=== PATIENT | male | born 1970 | race African-American/Black ===

== ENCOUNTER 2019-07-26 17:09 | Observation (INO) ==
[2019-07-26] MEDS ORDERED: ASPIRIN PO ONE ×2 (17:34→21:45)
[2019-07-26 17:46] LABS: BASO# 0.02 X1000 (0.0-0.2); BASO% 0.3 % (0.0-0.8); EOS# 0.07 X1000 (0.0-0.7); HEMATOCRIT 41.3 % (42.0-52.0); HEMOGLOBIN 13.8 g/dL (14.0-18.0); IMM GRAN# 0.01 X1000 (0.0-0.04); IMM GRAN% 0.1 % (0.0-0.5); LYMPH% 25.6 % (20.5-51.1); MCH 29.4 PG (27-31); MCHC 33.4 g/dL (33-37); MCV 88.1 FL (81-99); MONO# 0.88 X1000 (0.11-0.59); MONO% 12.5 % (1.7-9.3); MPV 11.2 FL (7.4-10.4); NEUT# 4.24 X1000 (1.4-6.5); NEUT% 60.5 % (42.2-75.2); PLT 215 X1000 (130-400); RBC 4.69 XMIL (4.7-6.1); WBC 7.02 X1000 (4.8-10.8)
--- NOTE | 2019-07-26 17:55 | PROVIDER DOCUMENTATION ---
HPI-Chest Pain - General Chief Complaint: Cough Stated Complaint: CP X 4 DAYS Time Seen by Provider: 07/26/19 17:36 Source: patient Allergies/Adverse Reactions: Patient Allergies Allergy/AdvReac Type Severity Reaction Status Date / Time No Known Allergies Allergy Verified 03/19/17 16:12 Home Medications: Home Medication List Medication Instructions Recorded Confirmed Last Taken Type Cyclobenzaprine [Flexeril] 10 mg PO TID #20 tablet 03/19/17 Unknown Rx Ibuprofen [Motrin] 800 mg PO Q8H PRN PRN #20 tablet 03/19/17 Unknown Rx Methylprednisolone [Medrol Dosepak] 4 mg PO DIRECTED #1 package 03/19/17 Unknown Rx Omeprazole 20 mg PO DAILY #20 tablet. 03/19/17 Unknown Rx - History of Present Illness-CP Nature of Presenting Problem: 48 yom presents with 4 days of sharp intermittent CP that is non radiating & cough and SOB. He denies sweating, N/V/D, dizziness or any other symptoms Location: reports: substernal Chest Pain Radiation: reports: no radiation Quality of Pain: reports: sharp Severity in ED: moderate Onset/Duration: 4 days ago Timing: intermittent Context/Activities at Onset: reports: none Modifying Factors: improves with: nothing Associated Symptoms: reports: denies symptoms Nitro Today/Relief: no nitro taken today Aspirin Treatment Today: 325 mg x 1, provided by ED Prior Chest Pain/Cardiac Workup: reports: no prior chest pain, no prior cardiac workup Similar Symptoms Previously?: No Recently Seen Here or By Another Healthcare Provider: No Review of Systems - Adult - REVIEW OF SYSTEMS - ADULT Constitutional: reports: no symptoms reported. denies: see HPI, chills, fever, fatique, night sweats, weight gain, weight loss, other Eyes: reports: no symptoms reported. denies: see HPI, discharge, dry eyes, decreased vision, blurred vision, double vision, eye pain, redness, other Ears, Nose, Mouth & Throat: reports: no symptoms reported. denies: see HPI, ear discharge, ear pain, hearing loss, tinnitus, epistaxis, sinus problem, nose pain, loose teeth, mouth/dental pain, mouth swelling, hoarseness, throat pain, throat swelling, other Cardiovascular: reports: chest pain. denies: no symptoms reported, see HPI, edema, heart murmur, irregular heart rate, orthopnea, palpitations, poor circulation, PND, syncope, other Respiratory: reports: cough, shortness of breath. denies: no symptoms reported, see HPI, chronic cough, dyspnea on exertion, excessive sputum production, hemopt ysis, pleurisy, wheezing, other Gastrointestinal: reports: no symptoms reported. denies: see HPI, abdominal pain, hematemesis, constipation, diarrhea, difficulty swallowing, frequent heartburn, nausea, poor appetite, rectal bleeding, vomiting, other Genitourinary: reports: no symptoms reported. denies: see HPI, dysuria, discharge, frequency, flank pain, frequent UTI's, hematuria, hesitency, incontinence, urinary retention, urgency, other Musculoskeletal: reports: no symptoms reported. denies: see HPI, bone pain, back pain, frequent leg cramps, joint pain, joint swelling, muscle aches, muscle weakness, neck pain, other Integumentary: reports: no symptoms reported. denies: see HPI, hives, hair loss, itching, mole changes, nail changes, rash, skin sores/ulcer, skin thickening, other Neurological: reports: no symptoms reported. denies: see HPI, ataxia, dizziness /vertigo, headache/migraines, loss of balance, numbness, paresthesia, seizure, slurred speech, syncope, tremors, other Psychiatric: reports: no symptoms reported. denies: see HPI, anxiety, anti- depressant use, alcohol/drug dependence, depression, emotional problems, insomni a, panic attacks, suicidal thoughts, other Endocrine: reports: no symptoms reported. denies: see HPI, change in skin pigment, excessive sweating, goiter, cold intolerance, heat intolerance, increased hunger, increased thirst, polyuria, other Hematologic/Lymphatic: reports: no symptoms reported. denies: see HPI, blood clots, easy bruising, low blood count, lymphedema, prolonged bleeding, swollen lymph nodes, transfusions, other Allergic/Immunologic: reports: no symptoms reported. denies: see HPI, allergic reactions, allergic rhinitis, asthma, eczema, food allergy, frequent infections, hay fever, hives, positive PPD, urticaria, other Past History - Adult - PAST MEDICAL HISTORY-ADULT Review of Records: reports: Nursing Assessment Review, Social history reviewed & non-contributory. Major Childhood Illnesses: reports: denies history Cardiovascular: reports: denies history Respiratory: reports: denies history Gastrointestinal: reports: denies history Obstetrical/Gynecological: reports: denies history Genitourinary: reports: denies history Musculoskeletal: reports: orthopedic injury Neurological: reports: denies history Endocrine/Immune: reports: denies history Other Conditions: reports: denies history - PRIOR SURGERIES/PROCEDURES Surgical/Procedure History: reports: orthopedic (extremity) - IMMUNIZATION STATUS Childhood Immunizations: See Nurse Assessment Flu Vaccine: See Nurse Assessment Physical Exam-General - PHYSICAL EXAM-ADULT Initial Vital Signs Reviewed: Yes - CONSTITUTIONAL General Appearance: appears well, alert - EYES Eyes: PERRL/EOMI, pink conjunctivae - HEAD, EARS, NOSE, MOUTH & THROAT HENMT: normocephalic/atraumatic, moist mucous membranes, normal ENT inspection - NECK Neck: non-tender, full range of motion, supple - RESPIRATORY Respiratory: chest non-tender, lungs clear, normal breath sounds, no pleuratic chest pain, no respiratory distress, no accessory muscle use - CARDIOVASCULAR Cardiovascular: normal peripheral pulses, regular rate, rhythm, no edema, no gallop, no JVD, no murmur - GASTROINTESTINAL (ABDOMEN) Abdominal Exam: normal bowel sounds, non tender, soft, no organomegaly, no pulsatile mass - LYMPHATIC Lymphatic: no adenopathy - MUSCULOSKELETAL Back Exam: normal inspection, no CVA tenderness, no vertebral tenderness Extremity: normal range of motion, non-tender, normal gait, normal inspection Peripheral Pulses: radial (R): 2+, radial (L): 2+ - SKIN Integumentary: normal color, normal turgor, warm/dry - NEUROLOGIC Neurologic: grossly normal - PSYCHIATRIC Psych/Mental Status: normal mood/affect, oriented x 3 - HEART Score HEART Score: History: Moderately Suspicious HEART Score: ECG: Non-Specific Repolarization Disturbance/LBBB/PM HEART Score: Age: 45-65 Years HEART Score: Risk Factors for Atherosclerotic Disease: 1 or 2 Risk Factors HEART Score: Troponin: < or = Normal Limit Total HEART Score:: 4 Progress - PLAN OF CARE/RESULTS Progress/Plan/Lab Results: Vital Signs - 8 hr 07/26/19 17:12 07/26/19 18:49 Temperature 97.9 F 98 F Pulse Rate 82 60 Respiratory Rate 18 18 Blood Pressure 159/102 147/103 O2 Sat by Pulse Oximetry 99 95 Laboratory Results - last 24 hr 07/26/19 07/26/19 07/26/19 17:25 17:25 17:25 WBC 7.02 RBC 4.69 L Hgb 13.8 L Hct 41.3 L MCV 88.1 MCH 29.4 MCHC 33.4 RDW Std Deviation 13.0 Plt Count 215 MPV 11.2 H Immature Gran % (Auto) 0.1 Neut % (Auto) 60.5 Lymph % (Auto) 25.6 [place] % (Auto) 12.5 H Eos % (Auto) 1.0 Baso % (Auto) 0.3 Immature Gran # (Auto) 0.01 Neut # (Auto) 4.24 Lymph # (Auto) 1.80 [place] # (Auto) 0.88 H Eos # (Auto) 0.07 Baso # (Auto) 0.02 PT INR PTT (Actin FS) D-Dimer, Quantitative Sodium 141 Potassium 4.1 Chloride 102 Carbon Dioxide 28 Anion Gap 11 BUN 11 Creatinine 1.0 Estimated GFR/1.73 m2 > 60 BUN/Creatinine Ratio 11 Glucose 85 Calculated Osmolality 280 Calcium 9.7 Total Bilirubin 0.50 AST 20 ALT 15 Alkaline Phosphatase 67 Creatine Kinase 292 H Creatine Kinase Index 1.2 CK-MB (CK-2) 3.57 Troponin T < 0.010 Xyf-B-Nzrafhkmtbu Pept Total Protein 7.8 Albumin 4.7 Globulin 3.0 Albumin/Globulin Ratio 2.0 07/26/19 07/26/19 07/26/19 17:25 17:25 17:25 WBC RBC Hgb Hct MCV MCH MCHC RDW Std Deviation Plt Count MPV Immature Gran % (Auto) Neut % (Auto) Lymph % (Auto) [place] % (Auto) Eos % (Auto) Baso % (Auto) Immature Gran # (Auto) Neut # (Auto) Lymph # (Auto) [place] # (Auto) Eos # (Auto) Baso # (Auto) PT 12.1 INR 0.86 PTT (Actin FS) 26.9 D-Dimer, Quantitative 0.74 H Sodium Potassium Chloride Carbon Dioxide Anion Gap BUN Creatinine Estimated GFR/1.73 m2 BUN/Creatinine Ratio Glucose Calculated Osmolality Calcium Total Bilirubin AST ALT Alkaline Phosphatase Creatine Kinase Creatine Kinase Index CK-MB (CK-2) Troponin T Cnj-Y-Jzlyztqpgnl Pept 70 Total Protein Albumin Globulin Albumin/Globulin Ratio 07/26/19 07/26/19 18:45 18:45 WBC RBC Hgb Hct MCV MCH MCHC RDW Std Deviation Plt Count MPV Immature Gran % (Auto) Neut % (Auto) Lymph % (Auto) [place] % (Auto) Eos % (Auto) Baso % (Auto) Immature Gran # (Auto) Neut # (Auto) Lymph # (Auto) [place] # (Auto) Eos # (Auto) Baso # (Auto) PT INR PTT (Actin FS) D-Dimer, Quantitative Sodium Potassium Chloride Carbon Dioxide Anion Gap BUN Creatinine Estimated GFR/1.73 m2 BUN/Creatinine Ratio Glucose Calculated Osmolality Calcium Total Bilirubin AST ALT Alkaline Phosphatase Creatine Kinase 255 H Creatine Kinase Index 1.2 CK-MB (CK-2) 3.15 Troponin T < 0.010 Ehc-N-Fqkeypjkrgs Pept Total Protein Albumin Globulin Albumin/Globulin Ratio Orders Category Date Time Status Cardiac Monitoring DIRECTED Care 07/26/19 17:34 Active Oxygen Therapy- ED Nursing DIRECTED Care 07/26/19 17:34 Active Saline Loc NOW Care 07/26/19 17:34 Active CHEST-2 VIEWS [RAD] Stat Exams 07/26/19 17:17 Completed CTA [CT ANGIOGRM PULMONARY ARTERIES] [CT] Stat Exams 07/26/19 18:24 Completed CBC WITH ELECTRONIC DIFF [HEME] Stat Lab 07/26/19 17:25 Completed CK PROFILE [SP CHEM] Stat Lab 07/26/19 17:25 Completed CK PROFILE [SP CHEM] Stat Lab 07/26/19 18:45 Completed COMPREHENSIVE METABOLIC PANEL [CHEM] Stat Lab 07/26/19 17:25 Completed D-DIMER [COAG] Stat Lab 07/26/19 17:25 Completed PRO B-NATRIURETIC PEPTIDE Stat Lab 07/26/19 17:25 Completed PROTIME WITH INR [COAG] Stat Lab 07/26/19 17:25 Completed PTT [COAG] Stat Lab 07/26/19 17:25 Completed TROPONIN T Stat Lab 07/26/19 17:25 Completed TROPONIN T Stat Lab 07/26/19 18:45 Completed Aspirin Med 07/26/19 17:34 Discontinued 325 mg PO NOW ONE CP/SOB/Palp >45 yrs of Age Stat Oth 07/26/19 17:34 Ordered EKG [EKG] Stat Ther 07/26/19 17:34 Draft EKG [EKG] Stat Ther 07/26/19 18:40 Draft Result Diagrams: 07/26/19 17:25 07/26/19 17:25 - EKG 1 Time of EKG reading by physician:: 17:21 EKG Read and Signed by:: Mike Rae EKG Interpretation (*Must complete 3 of following elements*): Normal Rate: 72 Rhythm: NSR [place]: normal QRS: normal CT Interval: normal ST Wave: normal Prior EKG Comparison: no prior EKG 2 Time of EKG reading by physician:: 18:46 EKG Read and Signed by:: Mike Rae EKG Interpretation (*Must complete 3 of following elements*): Abnormal Rate: 63 Rhythm: NSR WITH EARLY REPOLARIZATION AND J POINT ELEVATION [place]: normal QRS: normal CT Interval: normal ST Wave: normal Prior EKG Comparison: changes noted - XRAY 1 XRAY Study: Chest Impression: See EMR Report (EXAM: CHEST-2 VIEWS 07/26/2019 HISTORY: prod cough x 4 days TECHNIQUE: PA and lateral chest COMMENT: The heart size is at the upper limits of normal. The lungs are clear. There are no previous studies. IMPRESSION: No evidence of acute disease. Electronically signed by Vincent Ho 07/26/2019 7:07 PM 07/26/191906 Interpreting Physician: Vincent Ho MD Dictated Date/Time: 07/26/191906 cc: Mike Rae MD; Ras Barrios MD) - CT/MRI 1 CT Study: Angiogram Impression: See EMR Report (EXAM: CT ANGIOGRM PULMONARY ARTERIES 07/26/2019 HISTORY: Elevated DD, CP, Cough TECHNIQUE: This exam was performed using automated exposure control, adjustment of mA or kV according to patient size, and/or use of iterative reconstruction technique. COMMENT: There are no filling defects in the pulmonary arteries. The thoracic aorta is not distended. There is no evidence of dissection. No abnormal fluid collections are present. The lungs are clear. The regional skeleton is intact. There is no evidence of acute abnormality in the visualized portion of the abdomen. IMPRESSION: No evidence of acute disease. Electronically signed by Vincent Ho 07/26/2019 7:23 PM 07/26/[id number] Interpreting Physician: Vincent Ho MD Dic tated Date/Time: 07/26/191919 cc: Rosaura Haq; Ras Barrios MD) - CONSULTS/PCP/HOSPITALIST Notification #1 *Consult/PCP/Hospitalist*: DR. DREW Time Discussed: 19:58 Consult Disposition: Admit Departure - Departure Date of Disposition Decision: 07/26/19 Time of Disposition Decision: 19:58 DIAGNOSIS: Chest pain Qualifiers: Chest pain type: unspecified Qualified Code(s): R07.9 - Chest pain, unspecified Disposition: ADMITTED INPATIENT 09 Certified Medical Emergency: Emergent Condition: Stable Referrals and Follow-Ups: None,PCP [NON-STAFF PROVIDER] - - Critical Care Note This patient required my direct & personal management of CC.: No Attestation - Physician/ LUCY Attestation Patient care was provided by Advanced Practice Provider:: Yes Advanced Practice Provider:: Rosaura Haq Advanced Practice Provider documentation review:: The Mid-level provider documentation, treatment plan and medical decision making was reviewed by the physician who agrees with all treatment and medical decision making by the MLP. The physician spent face to face time with patient:: No Advanced Practice Provider documentation review:: Supervising physician onsite and consulted in the evaluation and care of this patient. The physician did not have a face to face encounter with the patient.
[2019-07-26 17:58] LABS: INR 0.86; PROTIME 12.1 Seconds (11.0-16.0)
[2019-07-26 17:59] LABS: PTT 26.9 Seconds (22.3-41.8)
--- NOTE | 2019-07-26 18:00 | ED EKG INTERP ---
This chart was entered by Natacha Godinez Scribe, acting as scribe for Rosaura Haq CRNP. EKG Interpretation - EKG Time of EKG reading by physician:: 17:21 EKG Read and Signed by:: Mike Rae EKG Interpretation (*Must complete 3 of following elements*): Normal Rate: 72 Rhythm: NSR [place]: normal QRS: normal [place] Interval: normal ST Wave: normal Attestation - Physician/ LUCY Attestation Patient care was provided by Advanced Practice Provider:: Yes Advanced Practice Provider:: Rosaura Haq Advanced Practice Provider documentation review:: The Mid-level provider documentation, treatment plan and medical decision making was reviewed by the physician who agrees with all treatment and medical decision making by the P. The physician spent face to face time with patient:: No Advanced Practice Provider documentation review:: Supervising physician onsite and consulted in the evaluation and care of this patient. The physician did not have a face to face encounter with the patient. This chart was documented by the indicated scribe, (Natacha Godinez Scribe) and accurately reflects the services I performed and decisions made by , Rosaura Haq CRNP, as attested by the provider's signature.
[2019-07-26 18:10] LABS: AGAP 11; ALBUMIN 4.7 g/dL (3.5-5.0); ALKALINE PHOSPHATASE 67 U/L (32-122); BUN 11 mg/dL (8-22); CALCIUM 9.7 mg/dL (8.8-10.2); CHLORIDE 102 mmol/L (98-107); COSMO 280; ESTIMATED GFR > 60; GLUCOSE 85 mg/dL (70-104); GOT 20 U/L (10-34); GPT 15 U/L (10-44); POTASSIUM 4.1 mmol/L (3.5-5.1); SODIUM 141 mmol/L (136-145); TCO2 28 mmol/L (25-35); TOTAL PROTEIN 7.8 g/dL (6.3-8.3)
[2019-07-26 18:16] LABS: CK PROFILE 292 U/L (24-204)
--- NOTE | 2019-07-26 18:29 | EKG Report ---
Test Performed on : 07/26/2019 5:21:27 PM Test Reason : cp Blood Pressure : / mmHG Vent. Rate : 072 BPM Atrial Rate : 072 BPM P-R Int : 170 ms QRS Dur : 088 ms QT Int : 350 ms P-R-T Axes : 067 037 033 degrees QTc Int : 383 ms Normal sinus rhythm. Normal ECG No previous ECGs available Unconfirmed Result
[2019-07-26 18:30] LABS: CK INDEX 1.2 (0.0-2.5); CK-MB 3.57 ng/mL (0.0-5.0)
--- NOTE | 2019-07-26 18:53 | EKG Report ---
Test Performed on : 07/26/2019 6:46:42 PM Test Reason : chest pain Blood Pressure : / mmHG Vent. Rate : 063 BPM Atrial Rate : 063 BPM P-R Int : 174 ms QRS Dur : 090 ms QT Int : 394 ms P-R-T Axes : 071 042 032 degrees QTc Int : 403 ms Normal sinus rhythm. Early repolarization Normal ECG When compared with ECG of 26-JUL-2019 17:21, (Unconfirmed) No significant change was found Unconfirmed Result
--- NOTE | 2019-07-26 19:10 | Diag Imaging Result Doc PS360 ---
EXAM: CHEST-2 VIEWS 07/26/2019 HISTORY: prod cough x 4 days TECHNIQUE: PA and lateral chest COMMENT: The heart size is at the upper limits of normal. The lungs are clear. There are no previous studies. IMPRESSION: No evidence of acute disease. Electronically signed by Vincent Ho 07/26/2019 7:07 PM
--- NOTE | 2019-07-26 19:25 | Diag Imaging Result Doc PS360 ---
EXAM: CT ANGIOGRM PULMONARY ARTERIES 07/26/2019 HISTORY: Elevated DD, CP, Cough TECHNIQUE: This exam was performed using automated exposure control, adjustment of mA or kV according to patient size, and/or use of iterative reconstruction technique. COMMENT: There are no filling defects in the pulmonary arteries. The thoracic aorta is not distended. There is no evidence of dissection. No abnormal fluid collections are present. The lungs are clear. The regional skeleton is intact. There is no evidence of acute abnormality in the visualized portion of the abdomen. IMPRESSION: No evidence of acute disease. Electronically signed by Vincent Ho 07/26/2019 7:23 PM
[2019-07-26 19:51] LABS: CK INDEX 1.2 (0.0-2.5); CK-MB 3.15 ng/mL (0.0-5.0)
[2019-07-27] MEDS ORDERED: FLU VACCINE IM ONE (00:02)
--- NOTE | 2019-07-27 08:43 | HISTORY AND PHYSICAL ---
PRIMARY CARE PROVIDER: Dr. Ras Barrios. CHIEF COMPLAINT: Chest pain. HISTORY OF PRESENT ILLNESS: Mr. Green is a 48-year-old, -[place] male who claims no past medical history. Reports last , while he was working at [employer], he began to have a "sharp pain" that would radiate from one side of the chest to the other. He has had this intermittent pain now for the last 7 to 8 years. It can last for days, minutes, and comes and goes. He does report shortness of breath with the pain, some dizziness. No diaphoresis. No palpitations. No nausea or vomiting. He did report that he can take ibuprofen and that it can ease. Currently, the pain has eased and is almost resolved. Workup in the ED showed an elevated D-dimer. He underwent a pulmonary arteriogram that did not show any acute process. He has had four sets of cardiac enzymes that have been negative. He will continue for an echocardiogram and a stress test this a.m. He denies any headache, fever, chills, cough, diarrhea, or constipation. PAST MEDIAL HISTORY: Denies. PAST SURGICAL HISTORY: Skin graft to the left arm. FAMILY HISTORY: Mother with hypertension. SOCIAL HISTORY: Works at [employer]. Denies any tobacco, alcohol, or illicit drug use. REVIEW OF SYSTEMS: Twelve-point review of systems completely negative except for those mentioned in the HPI. ALLERGIES: No known drug allergies. HOME MEDICATIONS: None. PHYSICAL EXAMINATION: VITAL SIGNS: Temperature is 97.4 degrees, heart rate 55, respirations 20, blood pressure 127/94, O2 is 100% on room air. GENERAL: Mr. Green is a 48-year-old, male who is lying in the bed in no acute distress. HEENT: Atraumatic, normocephalic. PERRL. NECK: Supple. Trachea midline. CARDIOVASCULAR: S1, S2 appreciated. No murmurs, gallops, or rubs noted. RESPIRATORY: Lung sounds clear bilaterally. GI: Soft, nontender, nondistended. Positive bowel sounds in 4 quadrants. EXTREMITIES: Lower extremities negative for edema. NEUROLOGIC: No focal deficits noted. LABORATORY DATA: White count 7, hemoglobin and hematocrit 13 and 41, platelet count is 215,000. D-dimer 0.74. Sodium 141, potassium 4.1, BUN 11, creatinine 1, blood glucose is 84. Four sets of cardiac enzymes have been less than 0.010. DIAGNOSTIC DATA: Chest x-ray, no evidence of acute disease. EKG, normal sinus rhythm. Pulmonary arteriogram, no evidence of acute disease. Followup EKG, normal sinus rhythm with early repolarization. ASSESSMENT AND PLAN: 1. Chest pain rule out. He has had four sets of negative cardiac enzymes. Pulmonary arteriogram has been negative. We will continue with echocardiogram and a stress test. We did discuss if these results were negative, he may need to follow up with further gastrointestinal workup for possible gastroesophageal reflux disease and/or gastritis. He remains nothing per oral, awaiting his echocardiogram and stress. Possible discharge home this afternoon. 2. Further recommendation to follow physician evaluation, laboratory and diagnostic data. Dictated by KENYETTA Armenta for Kale Astudillo MD Addendum: Patient seen and examined by myself. Agree with KENYETTA note. It reflects my assessment and plan. Patient is being admitted to hospital for chest pain. Workup under progress. Pending results from Lexiscan ordered at ER. If normal he will be discharged. cc: MD Ras Valerio MD MTDD
--- NOTE | 2019-07-27 12:28 | GRADED EXERCISE REPORT ---
DATE: 07/27/2019 ORDERING PHYSICIAN: Kale Astudillo MD. INDICATION: Chest pain. FINDINGS: The patient underwent GXT treadmill testing per modified Benjy protocol. Target heart rate 145 based on 85% predicted. Baseline EKG showed J-point elevation in the lateral leads, anterior lateral leads, otherwise nonspecific changes. Questionable Q's in V5-V6. He underwent treadmill testing, had fair exercise tolerance. Peak heart rate was reached at about 8 minutes. He did not develop any chest pain during the procedure. He did have some ST changes but they look like elevations in II, III, and AVF. He had some J-point elevation in V3 through V6 which was atypical, so test was felt to be clinically and electrically negative. Myocardial perfusion will be reported separately. He recovered pretty briskly with a heart rate of 101 two minutes postexercise with a peak in the 150s. Peak heart rate 150, peak blood pressure 176/110, which he did have blood pressure response. cc: Trent Vizcaino MD
[2019-07-27 15:37] VITALS: BP 123/85
--- NOTE | 2019-07-27 17:15 | Diag Imaging Result Document ---
PROCEDURE NAME: MYOCARDIAL PERF SCAN, STR/REST - 07/26/2019 INDICATION: This is a 48-year-old male, patient of Dr. Bear, hospitalist. The patient has chest pain. DESCRIPTION OF PROCEDURE: The patient came into the nuclear lab and received a rest injection of technetium 99 sestamibi 14.4 mCi. Multiple tomographic views of the cardiac structures were obtained at rest. Subsequently the patient underwent a treadmill exercise protocol and at peak exercise was injected with technetium 99 sestamibi 39.4 mCi. Multiple tomographic views of the cardiac structures were obtained following completion of the exercise protocol. SUMMARY OF ELECTROCARDIOGRAPHIC PORTION OF THE STUDY: Dr. Vizcaino already reported the ECG portion of the test. SUMMARY OF MYOCARDIAL PERFUSION PORTION OF THE STUDY: Poststress tomographic views of the left ventricle showed normal homogeneous distribution of radiotracer throughout the entire left ventricular myocardium. There is no evidence of any postexercise defect. essentially normal myocardial perfusion. The rest images showed normal perfusion. The polar plots revealed the same. There is no evidence of neither inducible ischemia nor myocardial scar. Gated SPECT shows normal left ventricular systolic function. Ejection fraction is estimated at 68% with normal ventricular volumes and no wall motion abnormality. Lung/heart ratio is normal at 0.42. TID is normal at 0.79. CONCLUSIONS: In summary, this study showed: 1. Normal poststress myocardial perfusion scan. There is no scintigraphic evidence of exercise induced myocardial ischemia. 2. Normal left ventricular systolic function. Ejection fraction is 68% with normal ventricular volumes and no wall motion abnormality. 3. This study represents a low risk for ischemic events. Clinical correlation is recommended. cc: Jax Morris MD
--- NOTE | 2019-07-27 19:22 | ECHO REPORT ---
ORDER DATE: 07/26/2019 INTERPRETING PHYSICIAN: Dr. Morris CLINICAL INDICATIONS: Chest pain and hypertension. M-MODE MEASUREMENTS: Left ventricle end diastole: 4.4 cm. Left ventricle end systole: 2.7 cm. Posterior wall: 1.2 cm. Interventricular septum: 1.2 cm. Left atrium: 4.3 cm. Aortic root: 3.2 cm. SUMMARY OF 2-DIMENSIONAL IMAGIN. Left ventricular function is normal. Ejection fraction is 60%. There is no wall motion abnormality noted. The right ventricle appears to be normal. 2. The aortic valve looks normal. Color flow mapping is unremarkable. 3. The tricuspid valve shows mild degree of regurgitation. The inferior vena cava is not dilated. 4. Pulmonary pressure is estimated at 26 mmHg. The pulmonic valve is unremarkable. Color flow mapping indicates trace of regurgitation. The tricuspid valve also indicates trace of regurgitation. 5. The mitral valve shows no significant regurgitation. 6. Pulsed wave Doppler of mitral inflow is normal. 7. Tissue Doppler of septal and mitral lateral annulus averages 10 cm. There is no diastolic dysfunction. 8. There is no pericardial effusion, no mass, and no thrombus. 9. The chambers are not dilated. CONCLUSIONS: In summary, this echocardiographic study appears to be normal. cc: Jax Morris MD
--- NOTE | 2019-07-28 07:33 | DISCHARGE SUMMARY ---
ADMISSION DATE: 07/26/2019 DISCHARGE DATE: 07/27/2019 CHIEF COMPLAINT: Chest pain. DISCHARGE DIAGNOSIS: Chest pain rule out. Patient has had 4 sets of cardiac enzymes. He has undergone an exercise stress test as well as a myocardial perfusion scan and will be discharged home to follow up with his PCP for further evaluation of this pain that has been intermittent and ongoing for the past 7 to 8 years. HOSPITAL COURSE: Briefly, Mr. Green is a 48-year-old male who claims no past medical history, who reported last while working at [email or web address], began to have a "sharp pain" that would radiate from 1 side of the chest to the other. He reports this pain has been intermittent now for the last 7-8 years. It can last for days, then it comes and goes. Nothing makes it better, nothing makes it worse. There is sometimes some associated shortness of breath dizziness, but no diaphoresis. No palpitations. No nausea or vomiting. He reports that he has taken ibuprofen in the past that would ease it. Again, he has had 4 sets of cardiac enzymes that were negative, but an elevated D-dimer that ruled out PE with a pulmonary arteriogram. He has undergone an exercise stress test as well. Awaiting final results of his myocardial perfusion scan. Will be discharged home to follow up with his PCP, Ras Barrios. HOME MEDICATIONS: None. FOLLOWUP: Mr. Green is being discharged back home with self care. He is to follow up with his primary care provider for further workup and evaluation. He can return to the ED or call 911 for any worsening of symptoms. Dictated by KENYETTA Armenta for Kale Astudillo MD Addendum: Patient seen and examined by myself. Agree with KENYETTA note. It reflects my assessment and plan. Patient is being discharged in stable condition. Lexiscan stress test is normal. Will be seen by PCP within a week. cc: Kale Astudillo MD [facility]
== END 2019-07-27 18:45 | disposition home or self-care (01) ==
LOC: P.ED 17:09 → P.MEDSURG 17:09
PROVIDERS: ATTEND Internal Medicine